=== PATIENT | male | born 1965 | race Caucasian/White ===

== ENCOUNTER 2021-06-10 02:10 | Inpatient (IN) | payer BC, OTHER ==
[2021-06-10] VITALS (7 sets, daily range): BP systolic 102–181; BP diastolic 48–93
[~2021-06-10] VITALS: Ht 188 cm; Wt 93.0 kg
[2021-06-10] MEDS ORDERED: VALS80TA3 PO (02:25)
[2021-06-10] MEDS ORDERED: ONDANSETRON PF 4 MG/2 ML VIAL. IVP PRN (02:30)
[2021-06-10] MEDS ORDERED: MORPHINE SULFATE 2 MG/ML INJ. IVP PRN ×2 (02:30→12:00)
[2021-06-10] MEDS ORDERED: IV RINGERS,LACTATED 1000ML 1,000 ML IV SCH ×2 (02:30→12:00)
[2021-06-10] MEDS ORDERED: traMADol 50 MG TABLET PO PRN (02:30)
[2021-06-10] MEDS ORDERED: fentaNYL PF VIAL 100 MCG/2 ML VIAL IVP PRN ×2 (02:30→12:00)
[2021-06-10] MEDS ORDERED: hydrALAZINE 20 MG/ML VIAL. IVP PRN (02:30)
[2021-06-10] MEDS ORDERED: ACETAMINOPHEN 325 MG TABLET. PO PRN (02:30)
[2021-06-10] MEDS ORDERED: MAGNESIUM HYDROXIDE 2,400 MG/30 ML ORAL.SUSP. PO PRN (02:30)
[2021-06-10] MEDS: PIPERACILLIN/TAZOBACTAM 3.375 GM in IV NORMAL SALINE 50ML 50 ML IV SCH ×4 (05:23→23:48)
[2021-06-10 07:48] LABS: BASO # 0.1 x10^3/uL (0.0-0.2); BASO % 1 % (0-3); EOS # 0.1 x10^3/uL (0.0-0.7); EOS % 1 % (0-3); HEMATOCRIT 43.6 % (39.0-53.0); HEMOGLOBIN 14.7 g/dL (13.0-17.5); LYMPH % 19 % (24-48); MEAN CORPUSCULAR HEMOGLOBIN 32 pg (25-35); MEAN CORPUSCULAR HGB CONC 34 g/dL (31-37); MEAN CORPUSCULAR VOLUME 95 fL (79-100); MONO # 0.6 x10^3/uL (0.0-1.1); MONO % 5 % (0-9); NEUT # 8.3 x10^3/uL (1.8-7.7); NEUT % 75 % (31-73); PLATELET COUNT 239 x10^3/uL (140-400); RED BLOOD COUNT 4.61 x10^6/uL (4.30-5.70); RED CELL DISTRIBUTION WIDTH 12.8 % (11.5-14.5); WHITE BLOOD COUNT 11.1 x10^3/uL (4.0-11.0)
[2021-06-10 08:07] LABS: ALBUMIN 3.2 g/dL (3.4-5.0); CALCIUM 7.9 mg/dL (8.5-10.1); CREATININE 0.8 mg/dL (0.7-1.3); POTASSIUM 3.3 mmol/L (3.5-5.1); TOTAL BILIRUBIN 1.1 mg/dL (0.2-1.0); TOTAL PROTEIN 6.4 g/dL (6.4-8.2)
[2021-06-10] MEDS: FAMOTIDINE 20 MG/2 ML VIAL IVP SCH ×2 (08:28→21:07)
--- NOTE | 2021-06-10 08:54 | PDOC1 ---
History and Physical Date of Service: DOS: DATE: 06/10/21 TIME: 08:54 History of Present Illness: HPI: 56-year-old male with no significant past medical history history of sick for hypertension who comes in with abdominal pain that started a few days ago. Patient was transferred from [facility] with CT imaging showing acute appendicitis. Pain does not travel later. Denies any fevers or nausea vomiting or chest pain. Patient has no alleviating or exacerbating factors. Past Medical/Surgical History: PMH/PSH: Past medical history of hypertension Past surgical history of umbilical hernia repair and bilateral inguinal hernia repair. Allergies: Allergies: Coded Allergies: No Known Drug Allergies (Unverified , 06/10/21) Family History: Family History: Reviewed with no relevant findings in the chart Social History: Social History: Denies alcohol, tobacco or drug abuse. Current Medications: Current Medications Current Medications Influenza Virus Vaccine Quadrival (Flulaval Quad [id number] Syringe) 0.5 ml ONCE ONCE VAX IM ; Start 06/10/21 at 09:00; Stop 06/10/21 at 09:01 Ondansetron HCl (Zofran) 4 mg PRN Q4HRS PRN IVP NAUSEA/VOMITING; Start 06/10/21 at 02:30 Tramadol HCl (Ultram) 50 mg PRN Q6HRS PRN PO PAIN MODERATE/SEVERE; Start 06/10/21 at 02:30 Hydralazine HCl (Apresoline Inj) 10 mg PRN Q4HRS PRN IVP ELEVATED BP, SEE COMMENTS Last administered on 06/10/21at 02:43; Start 06/10/21 at 02:30 Fentanyl Citrate (Fentanyl 2ml Vial) 25 mcg PRN Q3HRS PRN IVP SEVERE PAIN 7-10 Last administered on 06/10/21at 02:44; Start 06/10/21 at 02:30 Acetaminophen (Tylenol) 650 mg PRN Q6HRS PRN PO MILD PAIN / TEMP > 100.3'F; Start 06/10/21 at 02:30 Morphine Sulfate (Morphine Sulfate) 2 mg PRN Q2HR PRN IVP PAIN MILD/MOD; Start 06/10/21 at 02:30 Ringer's Solution 1,000 ml @ 100 mls/hr Q10H IV Last administered on 06/10/21at 02:44; Start 06/10/21 at 02:30; Stop 06/10/21 at 12:29 Magnesium Hydroxide (Milk Of Magnesia) 2,400 mg PRN Q12HR PRN PO CONSTIPATION; Start 06/10/21 at 02:30 Piperacillin Sod/ Tazobactam Sod 3.375 gm/Sodium Chloride 50 ml @ 100 mls/hr Q6HRS IV Last administered on 06/10/21at 05:23; Start 06/10/21 at 06:00 Famotidine (Pepcid Vial) 20 mg BID IVP Last administered on 06/10/21at 08:28; Start 06/10/21 at 09:00 Active Scripts Active Reported Diovan (Valsartan) 80 Mg Tablet 80 Mg PO DAILY ROS: Review of Systems Review of System REVIEW OF SYSTEMS: GENERAL: Denies weakness SKIN: No bruising, hair changes or rashes. EYES: No blurred, double or loss of vision. NOSE AND THROAT: No history of nosebleeds, hoarseness or sore throat. HEART: No history of palpitations, chest pain or shortness of breath on exertion. LUNGS: Denies cough, hemoptysis, wheezing or shortness of breath. GASTROINTESTINAL: Positive for abdominal pain GENITOURINARY: No history of frequency, urgency, hesitancy or nocturia. NEUROLOGIC: Denies history of numbness, tingling, or tremor. PSYCHIATRIC: No history of panic, anxiety or depression. ENDOCRINE: No history of heat or cold intolerance, polyuria or polydipsia. EXTREMITIES: Denies joint pain, pain on walking or stiffness. Physical Exam: Vital Signs: Vital Signs Date Time Temp Pulse Resp B/P (MAP) Pulse Ox O2 Delivery O2 Flow Rate FiO2 06/10/21 07:55 98.1 74 18 104/51 (68) 99 Room Air 98.1 Physcial Exam: General: Well developed, well nourished, no acute distress, well appearing HEENT: Pupils equally round and reactive to light, EOMI, no discharge, normal conjunctiva Neck: Supple, no nuchal rigidity, no JVD, trachea midline, no tenderness Cardiac: RRR, no murmurs, no gallops, no rubs Chest/Lungs: CTAB, no wheeze, no rhonchi, no crackles Abdomen: soft, non-distended, no guarding, no peritoneal signs, periumbilical tenderness and maximally tender in the right lower quadrant. Back: No tenderness Extremities: no edema, pulses intact, non-tender,capillary refill <3 sec bilateral upper and lower extremities, Neuro: Alert and oriented x 4, no focal deficits, normal speech Labs: Labs: Laboratory Tests Test 06/10/21 07:30 White Blood Count 11.1 x10^3/uL (4.0-11.0) Red Blood Count 4.61 x10^6/uL (4.30-5.70) Hemoglobin 14.7 g/dL (13.0-17.5) Hematocrit 43.6 % (39.0-53.0) Mean Corpuscular Volume 95 fL (79-100) Mean Corpuscular Hemoglobin 32 pg (25-35) Mean Corpuscular Hemoglobin Concent 34 g/dL (31-37) Red Cell Distribution Width 12.8 % (11.5-14.5) Platelet Count 239 x10^3/uL (140-400) Neutrophils (%) (Auto) 75 % (31-73) Lymphocytes (%) (Auto) 19 % (24-48) Monocytes (%) (Auto) 5 % (0-9) Eosinophils (%) (Auto) 1 % (0-3) Basophils (%) (Auto) 1 % (0-3) Neutrophils # (Auto) 8.3 x10^3/uL (1.8-7.7) Lymphocytes # (Auto) 2.0 x10^3/uL (1.0-4.8) Monocytes # (Auto) 0.6 x10^3/uL (0.0-1.1) Eosinophils # (Auto) 0.1 x10^3/uL (0.0-0.7) Basophils # (Auto) 0.1 x10^3/uL (0.0-0.2) Sodium Level 136 mmol/L (136-145) Potassium Level 3.3 mmol/L (3.5-5.1) Chloride Level 100 mmol/L (98-107) Carbon Dioxide Level 26 mmol/L (21-32) Anion Gap 10 (6-14) Blood Urea Nitrogen 8 mg/dL (8-26) Creatinine 0.8 mg/dL (0.7-1.3) Estimated GFR (Cockcroft-Gault) 100.0 BUN/Creatinine Ratio 10 (6-20) Glucose Level 115 mg/dL (70-99) Calcium Level 7.9 mg/dL (8.5-10.1) Total Bilirubin 1.1 mg/dL (0.2-1.0) Aspartate Amino Transf (AST/SGOT) 17 U/L (15-37) Alanine Aminotransferase (ALT/SGPT) 32 U/L (16-63) Alkaline Phosphatase 53 U/L (46-116) Total Protein 6.4 g/dL (6.4-8.2) Albumin 3.2 g/dL (3.4-5.0) Albumin/Globulin Ratio 1.0 (1.0-1.7) Laboratory Tests Test 06/10/21 07:30 White Blood Count 11.1 x10^3/uL (4.0-11.0) Red Blood Count 4.61 x10^6/uL (4.30-5.70) Hemoglobin 14.7 g/dL (13.0-17.5) Hematocrit 43.6 % (39.0-53.0) Mean Corpuscular Volume 95 fL (79-100) Mean Corpuscular Hemoglobin 32 pg (25-35) Mean Corpuscular Hemoglobin Concent 34 g/dL (31-37) Red Cell Distribution Width 12.8 % (11.5-14.5) Platelet Count 239 x10^3/uL (140-400) Neutrophils (%) (Auto) 75 % (31-73) Lymphocytes (%) (Auto) 19 % (24-48) Monocytes (%) (Auto) 5 % (0-9) Eosinophils (%) (Auto) 1 % (0-3) Basophils (%) (Auto) 1 % (0-3) Neutrophils # (Auto) 8.3 x10^3/uL (1.8-7.7) Lymphocytes # (Auto) 2.0 x10^3/uL (1.0-4.8) Monocytes # (Auto) 0.6 x10^3/uL (0.0-1.1) Eosinophils # (Auto) 0.1 x10^3/uL (0.0-0.7) Basophils # (Auto) 0.1 x10^3/uL (0.0-0.2) Sodium Level 136 mmol/L (136-145) Potassium Level 3.3 mmol/L (3.5-5.1) Chloride Level 100 mmol/L (98-107) Carbon Dioxide Level 26 mmol/L (21-32) Anion Gap 10 (6-14) Blood Urea Nitrogen 8 mg/dL (8-26) Creatinine 0.8 mg/dL (0.7-1.3) Estimated GFR (Cockcroft-Gault) 100.0 BUN/Creatinine Ratio 10 (6-20) Glucose Level 115 mg/dL (70-99) Calcium Level 7.9 mg/dL (8.5-10.1) Total Bilirubin 1.1 mg/dL (0.2-1.0) Aspartate Amino Transf (AST/SGOT) 17 U/L (15-37) Alanine Aminotransferase (ALT/SGPT) 32 U/L (16-63) Alkaline Phosphatase 53 U/L (46-116) Total Protein 6.4 g/dL (6.4-8.2) Albumin 3.2 g/dL (3.4-5.0) Albumin/Globulin Ratio 1.0 (1.0-1.7) Images: Images CT images from [facility] reviewed on 06/09/2021 Assessment/Plan Assessment/Plan Acute appendicitis History of hypertension Admit to hospitalist service for further management General surgery consult for left laparoscopic appendectomy IV and p.o. pain control Keep n.p.o. DVT prophylaxis with Lovenox Continue IV fluids while n.p.o. Justifications for Admission Abdominal Pain Indications Is patient in severe pain?: Yes Justification for admission: Patient has severe pain that requires (parenteral analgesic-please state analgesics and route) at least every 4 hours necessitating inpatient level of care. Is NPO status required?: Yes Justification for admission: Patient may require to be NPO for greater 24hours making it medically necessary to manage patient as inpatient. Other Justification ABEBE COATES MD Jun 10, 2021 08:54
[2021-06-10] MEDS ORDERED: FLU VACC QUAD 21-22 (6MOS+) PF 0.5 ML SYRINGE. VAX IM ONE (09:00)
--- NOTE | 2021-06-10 11:00 | PDOC2 ---
THEODORE CHAIDEZ [employer] 06/10/21 1100: CONSULT Date of Consult Date of Consult DATE: 06/10/21 TIME: 10:57 Reason for Consult Reason for Consult: acute appendicitis Referring Physician Referring Physician: ER Identification/Chief Complaint Chief Complaint abdominal pain Source Source: Chart review, Patient History of Present Illness Reason for Visit: RLQ started acutely yesterday. No pain similar in past. No nausea or emesis. Aggravated with movement. Past Medical History Cardiovascular: HTN Past Surgical History Past Surgical History: Hernia Repair (umbilical when 5, bilat IHR ) Family History Family History: Other (noncontributory to current illness ) Social History <1 pack per day ALCOHOL: occassional Drugs: None Lives: Alone Current Medications Current Medications Current Medications Influenza Virus Vaccine Quadrival (Flulaval Quad Syringe) 0.5 ml ONCE ONCE VAX IM ; Start 06/10/21 at 09:00; Stop 06/10/21 at 09:01; Status DC Ondansetron HCl (Zofran) 4 mg PRN Q4HRS PRN IVP NAUSEA/VOMITING; Start 06/10/21 at 02:30 Tramadol HCl (Ultram) 50 mg PRN Q6HRS PRN PO PAIN MODERATE/SEVERE; Start 06/10/21 at 02:30 Hydralazine HCl (Apresoline Inj) 10 mg PRN Q4HRS PRN IVP ELEVATED BP, SEE COMMENTS Last administered on 06/10/21at 02:43; Start 06/10/21 at 02:30 Fentanyl Citrate (Fentanyl 2ml Vial) 25 mcg PRN Q3HRS PRN IVP SEVERE PAIN 7-10 Last administered on 06/10/21at 02:44; Start 06/10/21 at 02:30 Acetaminophen (Tylenol) 650 mg PRN Q6HRS PRN PO MILD PAIN / TEMP > 100.3'F; Start 06/10/21 at 02:30 Morphine Sulfate (Morphine Sulfate) 2 mg PRN Q2HR PRN IVP PAIN MILD/MOD; Start 06/10/21 at 02:30 Ringer's Solution 1,000 ml @ 100 mls/hr Q10H IV Last administered on 06/10/21at 02:44; Start 06/10/21 at 02:30; Stop 06/10/21 at 12:29 Magnesium Hydroxide (Milk Of Magnesia) 2,400 mg PRN Q12HR PRN PO CONSTIPATION; Start 06/10/21 at 02:30 Piperacillin Sod/ Tazobactam Sod 3.375 gm/Sodium Chloride 50 ml @ 100 mls/hr Q6HRS IV Last administered on 06/10/21at 05:23; Start 06/10/21 at 06:00 Famotidine (Pepcid Vial) 20 mg BID IVP Last administered on 06/10/21at 08:28; Start 06/10/21 at 09:00 Active Scripts Active Reported Diovan (Valsartan) 80 Mg Tablet 80 Mg PO DAILY Allergies Allergies: Coded Allergies: No Known Drug Allergies (Unverified , 06/10/21) ROS General: No: Other (fevers ) PSYCHOLOGICAL ROS: No: Anxiety, Depression Eyes: No Blurry vision, No Double vision HEENT: No: Heacaches, Sore Throat Hematological and Lymphatic: No: Bleeding Problems, Blood Clots Respiratory: No: Cough, Shortness of breath Cardiovascular: No Chest Pain, No Palpitations Gastrointestinal: Yes Other (see hpi) Genitourinary: No Dysuria, No Hematuria Musculoskeletal: No Joint Pain, No Muscle Pain Skin: No Pruritus, No Rash Physical Exam General: Alert, Oriented X3, Cooperative, No acute distress HEENT: PERRLA, Mucous membr. moist/pink Lungs: Clear to auscultation, Normal air movement Heart: Regular rate, Normal S1, Normal S2, No murmurs Abdomen: Soft, Other (mild ttp RLQ, no guarding or rebound, umbilical scar ) Extremities: No clubbing, No cyanosis Skin: No rashes, No breakdown Neuro: Normal gait, Normal speech Psych/Mental Status: Mental status NL, Mood NL MUSCULOSKELETAL: No deformity, No swelling Vitals VITALS Vital Signs Date Time Temp Pulse Resp B/P (MAP) Pulse Ox O2 Delivery O2 Flow Rate FiO2 06/10/21 10:45 98.3 70 18 118/68 (85) 97 Room Air 98.3 Labs Labs Laboratory Tests Test 06/10/21 07:30 White Blood Count 11.1 x10^3/uL (4.0-11.0) Red Blood Count 4.61 x10^6/uL (4.30-5.70) Hemoglobin 14.7 g/dL (13.0-17.5) Hematocrit 43.6 % (39.0-53.0) Mean Corpuscular Volume 95 fL (79-100) Mean Corpuscular Hemoglobin 32 pg (25-35) Mean Corpuscular Hemoglobin Concent 34 g/dL (31-37) Red Cell Distribution Width 12.8 % (11.5-14.5) Platelet Count 239 x10^3/uL (140-400) Neutrophils (%) (Auto) 75 % (31-73) Lymphocytes (%) (Auto) 19 % (24-48) Monocytes (%) (Auto) 5 % (0-9) Eosinophils (%) (Auto) 1 % (0-3) Basophils (%) (Auto) 1 % (0-3) Neutrophils # (Auto) 8.3 x10^3/uL (1.8-7.7) Lymphocytes # (Auto) 2.0 x10^3/uL (1.0-4.8) Monocytes # (Auto) 0.6 x10^3/uL (0.0-1.1) Eosinophils # (Auto) 0.1 x10^3/uL (0.0-0.7) Basophils # (Auto) 0.1 x10^3/uL (0.0-0.2) Sodium Level 136 mmol/L (136-145) Potassium Level 3.3 mmol/L (3.5-5.1) Chloride Level 100 mmol/L (98-107) Carbon Dioxide Level 26 mmol/L (21-32) Anion Gap 10 (6-14) Blood Urea Nitrogen 8 mg/dL (8-26) Creatinine 0.8 mg/dL (0.7-1.3) Estimated GFR (Cockcroft-Gault) 100.0 BUN/Creatinine Ratio 10 (6-20) Glucose Level 115 mg/dL (70-99) Calcium Level 7.9 mg/dL (8.5-10.1) Total Bilirubin 1.1 mg/dL (0.2-1.0) Aspartate Amino Transf (AST/SGOT) 17 U/L (15-37) Alanine Aminotransferase (ALT/SGPT) 32 U/L (16-63) Alkaline Phosphatase 53 U/L (46-116) Total Protein 6.4 g/dL (6.4-8.2) Albumin 3.2 g/dL (3.4-5.0) Albumin/Globulin Ratio 1.0 (1.0-1.7) Laboratory Tests Test 06/10/21 07:30 White Blood Count 11.1 x10^3/uL (4.0-11.0) Red Blood Count 4.61 x10^6/uL (4.30-5.70) Hemoglobin 14.7 g/dL (13.0-17.5) Hematocrit 43.6 % (39.0-53.0) Mean Corpuscular Volume 95 fL (79-100) Mean Corpuscular Hemoglobin 32 pg (25-35) Mean Corpuscular Hemoglobin Concent 34 g/dL (31-37) Red Cell Distribution Width 12.8 % (11.5-14.5) Platelet Count 239 x10^3/uL (140-400) Neutrophils (%) (Auto) 75 % (31-73) Lymphocytes (%) (Auto) 19 % (24-48) Monocytes (%) (Auto) 5 % (0-9) Eosinophils (%) (Auto) 1 % (0-3) Basophils (%) (Auto) 1 % (0-3) Neutrophils # (Auto) 8.3 x10^3/uL (1.8-7.7) Lymphocytes # (Auto) 2.0 x10^3/uL (1.0-4.8) Monocytes # (Auto) 0.6 x10^3/uL (0.0-1.1) Eosinophils # (Auto) 0.1 x10^3/uL (0.0-0.7) Basophils # (Auto) 0.1 x10^3/uL (0.0-0.2) Sodium Level 136 mmol/L (136-145) Potassium Level 3.3 mmol/L (3.5-5.1) Chloride Level 100 mmol/L (98-107) Carbon Dioxide Level 26 mmol/L (21-32) Anion Gap 10 (6-14) Blood Urea Nitrogen 8 mg/dL (8-26) Creatinine 0.8 mg/dL (0.7-1.3) Estimated GFR (Cockcroft-Gault) 100.0 BUN/Creatinine Ratio 10 (6-20) Glucose Level 115 mg/dL (70-99) Calcium Level 7.9 mg/dL (8.5-10.1) Total Bilirubin 1.1 mg/dL (0.2-1.0) Aspartate Amino Transf (AST/SGOT) 17 U/L (15-37) Alanine Aminotransferase (ALT/SGPT) 32 U/L (16-63) Alkaline Phosphatase 53 U/L (46-116) Total Protein 6.4 g/dL (6.4-8.2) Albumin 3.2 g/dL (3.4-5.0) Albumin/Globulin Ratio 1.0 (1.0-1.7) Assessment/Plan Assessment/Plan Acute appendicitis plan lap appy today NILE PEREZ MD 06/10/21 1410: CONSULT Assessment/Plan Assessment/Plan The patient was seen and examined by myself; a 56-year-old male reported to the emergency department with abdominal pain which began yesterday. The pain is initially in the lower abdomen and is localized to the right lower quadrant. He denies any fever chills or nausea or vomiting. The ER evaluation is consistent with acute appendicitis. PMH/PSH/ROS/SH as above; exam: alert, oriented, no neck masses, no scleral icterus, lungs clear, heart RR and R, abdomen soft, tender RLQ, prior surgical scars noted, ext neg for edema; A/P) Suspect acute appendicitis, plan to OR for lap appy. The details and risks of surgery were discussed with the patient. He understands and would like to proceed. THEODORE CHAIDEZ APRN Jun 10, 2021 11:00 NILE PEREZ MD Jun 10, 2021 14:10
[2021-06-10] MEDS ORDERED: PROPOFOL 10 MG/ML (20ML) VIAL. IV ONE (11:19)
[2021-06-10] MEDS ORDERED: LIDOCAINE 2% PF 5 ML VIAL. ONE (11:20)
[2021-06-10] MEDS ORDERED: ONDANSETRON PF 4 MG/2 ML VIAL. ONE (11:20)
[2021-06-10] MEDS ORDERED: FAMOTIDINE 20 MG/2 ML VIAL ONE (11:20)
[2021-06-10] MEDS ORDERED: DEXAMETHASONE SOD PHOS 4 MG/ML VIAL ONE (11:20)
[2021-06-10] MEDS ORDERED: KETOROLAC 30 MG/ML VIAL. ONE (11:20)
[2021-06-10] MEDS ORDERED: fentaNYL PF VIAL 100 MCG/2 ML VIAL ONE ×2 (11:20→14:21)
[2021-06-10] MEDS ORDERED: NEOSTIGMINE METHYLSULFATE 5 MG/5 ML SYRINGE. ONE (11:21)
[2021-06-10] MEDS ORDERED: GLYCOPYRROLATE 1 MG/5 ML VIAL. ONE (11:21)
[2021-06-10] MEDS ORDERED: ROCURONIUM 50 MG/5 ML VIAL. ONE (11:21)
[2021-06-10] MEDS ORDERED: IPRATRPIUM/ALBUTEROL 0.5/2.5MG 3 ML NEBU. ONE (11:30)
[2021-06-10] MEDS ORDERED: IPRATRPIUM/ALBUTEROL 0.5/2.5MG 3 ML NEBU. NEB ONE (11:30)
[2021-06-10] MEDS ORDERED: PROCHLORPERAZINE 10 MG/2 ML VIAL. IVP PRN (12:00)
[2021-06-10] MEDS ORDERED: HYDROmorphone 2 MG/ML INJ. IVP PRN (12:00)
[2021-06-10] MEDS ORDERED: BUPIVACAINE-EPI 0.5% 30 ML VIAL KIT. ONE (12:54)
[2021-06-10] MEDS ORDERED: ePHEDrine PF IN SALINE 50 MG/10 ML SYRINGE. IV ONE (13:35)
[2021-06-10] MEDS ORDERED: PHENYLEPHRINE in 0.9% NACL PF 1 MG/10 ML SYRINGE. IV ONE (13:59)
--- NOTE | 2021-06-10 14:08 | PDOC4 ---
Operative Note Operative Note Preoperative Diagnosis: Acute Appendicitis Postoperative Diagnosis: Same Procedure: Laparoscopic appendectomy Surgeon: Mickey Anesthesia: Gen. EBL: 10 mL Specimen: Appendix to pathology Drains: None Complications: None Indication: The patient is a 56-year-old male who reported to the emergency department with abdominal pain. The evaluation is consistent with acute appendicitis. The patient was offered surgical treatment with a laparoscopic appendectomy. The risks of surgery were discussed which include bleeding, infection, visceral injury, pain, anesthetic risk, potential need for additional surgery or procedure. The patient understands and would like to proceed. Description: The patient was taken to the operating room and placed supine on the operating table. Gen. anesthesia was performed. The abdomen was prepped with ChloraPrep and draped in a standard surgical manner. In the left upper quadrant a small incision was made through which a visualized 5 mm trocar was inserted. A pneumoperitoneum was created and the laparoscope was introduced. In the left lower quadrant a 5 mm trocar was inserted. In the suprapubic region a 12 mm trocar was inserted. The appendix was identified and appeared inflamed consistent with acute appendicitis. There was no clear evidence of perforation or periappendiceal abscess. The mesoappendix was bluntly from the appendix. The mesoappendix was controlled using several clips and it was div ided. The appendix was then amputated off the cecum using an Endo APARNA 45 stapling device. The appendix was then placed in an endoscopic bag and extracted at the suprapubic incision site. The fascia there was closed with 0 Vicryl and infiltrated with half percent Marcaine with epinephrine. The RLQ was visualized and the staple line appeared well intact and hemostasis was good. No other abnormalities were identified grossly. The remaining ports were removed and the pneumoperitoneum was relieved. The skin at all incision sites was closed with 4- 0 Monocryl. Steri-Strips and dressings were applied. The patient tolerated the procedure well and was sent to the recovery room in stable condition. At the end of the case all counts were correct. NILE PEREZ MD Jun 10, 2021 14:08
[2021-06-10] MEDS ORDERED: SEVOFLURANE 61 TO 120 MINUTES. IH ONE (14:23)
[2021-06-10] MEDS: fentaNYL PF VIAL 100 MCG/2 ML VIAL IVP PRN ×2 (14:27→14:53)
[2021-06-10] MEDS ORDERED: oxyCODONE/APAP 5/325 1 TAB TABLET PO PRN (14:30)
--- NOTE | 2021-06-10 14:44 | NUR ---
SS following for discharge planning. SS reviewed pt chart and discussed with pt RN. Pt is from home with spouse and is currently on room air. Surgery today. Pt on IV Zosyn. SS will continue to follow for discharge planning.
[2021-06-10] MEDS: oxyCODONE/APAP 5/325 1 TAB TABLET PO PRN ×2 (18:15→23:54)
[2021-06-11 03:00] VITALS: BP 97/59
[2021-06-11] MEDS: PIPERACILLIN/TAZOBACTAM 3.375 GM in IV NORMAL SALINE 50ML 50 ML IV SCH (05:35)
[2021-06-11 07:15] VITALS: BP 130/76
[2021-06-11] MEDS: oxyCODONE/APAP 5/325 1 TAB TABLET PO PRN (08:02)
[2021-06-11] MEDS: FAMOTIDINE 20 MG/2 ML VIAL IVP SCH (08:02)
--- NOTE | 2021-06-11 10:14 | PDOC ---
[employer] PROGRESS NOTE Date of Service DOS: DATE: 06/11/21 TIME: 10:10 Chief Complaint Chief Complaint CC: Acute appendicitis PMH: HTN PSH: Umbilical hernia repair, bilateral inguinal hernia repair History of Present Illness History of Present Illness 06/11/2021 Post-Op day 1 from laparoscopic appendectomy Patient seen and examined at bedside this morning, sitting upright in bed Patient is very energetic and feels well this morning after surgery Patient states he has been able to ambulate and that his pain is well-controlled - He feels ready to go home today Patient would like some pain pills sent to his pharmacy for when he goes home Discussed with RN Chart Reviewed Vitals/I&O Vitals/I&O: Vital Signs Date Time Temp Pulse Resp B/P (MAP) Pulse Ox O2 Delivery O2 Flow Rate FiO2 06/11/21 08:32 Room Air 06/11/21 07:15 97.9 54 20 130/76 (94) 96 97.9 06/10/21 14:44 8 I & O 06/10/21 06/10/21 06/11/21 15:00 23:00 07:00 Intake Total 1800 ml 50 ml Output Total 90 ml Balance 1710 ml 50 ml Physical Exam General: Alert, Oriented X3, Cooperative, No acute distress Heart: Regular rate, Normal S1, Normal S2, No murmurs Abdomen: Soft, Other (mild ttp RLQ, no guarding or rebound, umbilical scar; Clean and dry dressings on LLQ from lap appy yesterday) Extremities: No clubbing, No cyanosis Skin: No rashes, No breakdown Assessment and Plan Assessmemt and Plan Assessment Acute appendicitis - Post-Op Day 1 from laparoscopic appendectomy PMH of HTN PSH of umbilical hernia repair and bilateral inguinal hernia repair Plan IV and p.o. pain control IV fluids Continue home meds Incentive spirometry DVT prophylaxis (Lovenox) Full Code Probable discharge to home this afternoon Comment Review of Relevant I have reviewed the following items fabricio (where applicable) has been applied. Medications: Current Medications Medications (Trade) Dose Ordered Sig/Sheila Route PRN Reason Start Time Stop Time Status Last Admin Dose Admin Albuterol/ Ipratropium (Duoneb) 3 ml 1X ONCE NEB 06/10/21 11:30 06/10/21 11:31 DC 06/10/21 11:32 Fentanyl Citrate (Fentanyl 2ml Vial) 50 mcg PRN Q5MIN PRN IVP MODERATE PAIN 4-6 06/10/21 12:00 06/11/21 11:59 06/10/21 14:53 Bupivacaine HCl/ Epinephrine Bitart (Sensorcain-Epi 0.5% Kit) 30 ml STK-MED ONCE .ROUTE 06/10/21 12:54 06/10/21 12:54 DC 06/10/21 13:48 Oxycodone/ Acetaminophen (Percocet 5/325) 1 tab PRN Q4HRS PRN PO PAIN 06/10/21 14:15 06/11/21 08:02 Justifications for Admission Abdominal Pain Indications Is patient in severe pain?: Yes Justification for admission: Patient has severe pain that requires (parenteral analgesic-please state analgesics and route) at least every 4 hours necessitating inpatient level of care. Is NPO status required?: Yes Justification for admission: Patient may require to be NPO for greater 24hours making it medically necessary to manage patient as inpatient. Other Justification ROBERT HARRIS III DO Jun 11, 2021 10:14
--- NOTE | 2021-06-11 10:41 | NUR ---
SW following. Discussed with RN, pt from home with , room air, regular diet. Pt had surgery on 06/10/21, wanting to go home today. RN anticipates discharge home today. SW will continue to follow.
[2021-06-11 10:56] VITALS: BP 113/54
[2021-06-11] MEDS ORDERED: OXYC1TAB15 PO (11:17)
[2021-06-11] MEDS ORDERED: AMOX1TAB10 PO (11:17)
--- NOTE | 2021-06-11 16:02 | DS ---
DATE OF DISCHARGE: 06/11/2021 ADMISSION DIAGNOSIS: Appendicitis. DISCHARGE DIAGNOSIS: Postop laparoscopic appendectomy. HOSPITAL COURSE: The patient is a pleasant, middle-aged male, who presented with appendicitis. He was admitted. We consulted General Surgery. He was taken for laparoscopic appendectomy yesterday. Today, I saw and examined him. He is at his baseline and wants to go home. DISPOSITION: Home. ACTIVITY: As tolerated. DIET: Low sodium. DISCHARGE MEDICATIONS: Please see the MRAD. OTHER MEDICATIONS: P.r.n. Percocet 5 q.6 hours and then Augmentin 500 p.o. b.i.d. for 1 more week. We will continue his home Diovan 80 mg a day. TOTAL TIME: Thirty-one minutes. YEIMI/BECCA DR: Bal TID: [id number]
[2021-06-11] MEDS ORDERED: LACTOBACILLUS RHAMNOSUS GG 1 CAPSULE. PO SCH (21:00)
--- NOTE | 2021-06-12 16:07 | PATHOLOGY ---
[facility] Accession Number: [id number] . 01 Material submitted: . appendix - APPENDIX . 01 Clinical history: . APPENDICITIS LAPAROSCOPIC APPENDECTOMY . 02 Diagnosis: Appendix (appendectomy): - Marked acute appendicitis with fibrinopurulent periappendicitis. (DANIELE:tony; 06/11/2021) R 06/11/2021 1606 Local . 02 Comment: We find no evidence of malignancy in any of the tissue examined. (DANIELE:tony; 06/11/2021) . 02 Electronically signed: . Danie Miner MD, Pathologist NPI- [id number] . 01 Gross description: . Fixative: Formalin Labeled: Appendix Appendix length: 6.3 cm Appendix diameter: 1.5 cm Mesoappendix: 2.2 cm Proximal margin: Stapled Serosa: Purple-red and smooth to slightly roughened with a mild amount of fibrinous exudate Cut surface: Dilated Luminal diameter: Up to 1.2 cm Perforation: Not identified Lesions/abnormalities: None identified . Proximal margin and bisected tip in cassette A1. Additional sales representative girls' apparel cross-sections in cassette A2-A4. ([facility]; 06/10/2021) NRI/NRI 06/10/20212051 Local . 02 Pathologist provided ICD-10: K35.80 . 02 CPT . 790633 Specimen Comment: A courtesy copy of this report has been sent to [phone], [phone] Specimen Comment: [id number], Specimen Comment: Report sent to , DR WATSON / DR HUSAIN Specimen Comment: A duplicate report has been generated due to demographic updates. Performed at: [address] [place] [address] [address] [id number] MD Darryn Simons MD Phone: [phone] Performed at: [address] [place] [id number] [address] [id number] MD Danie Miner MD Phone: [phone]
== END 2021-06-11 11:28 | disposition home or self-care (01) | DRG 343 ==
LOC: 6 SOUTH 02:10 → 4 NORTH 18:26
PROVIDERS: ADMIT Internal Medicine; ATTEND Internal Medicine
PROC: 0DTJ4ZZ Resection of Appendix, Percutaneous Endoscopic Approach (ICD-10-PCS; principal; 2021-06-10 13:45)
DX: K35.80 Unspecified acute appendicitis (principal); I10 Essential (primary) hypertension; F17.210 Nicotine dependence, cigarettes, uncomplicated; Z79.899 Other long term (current) drug therapy
CPT/HCPCS: 36415; 80053; 85025; 88304; A4223; A4314; A4452; A4930; A6219; J0360; J1100; J1885; J2370; J2405; J2543; J2704; J2710; J3010; J3490; J7120; G0378